=== PATIENT | female | born 1965 | race Caucasian/White ===

== ENCOUNTER 2017-03-20 23:41 | Emergency (ER) | payer OTHER ==
[2017-03-21 00:08] VITALS: BP 157/96
[2017-03-21] MEDS ORDERED: Proparacaine 0.5% Ophth Soln 15 ML Bottle EYELF ONE (00:11)
--- NOTE | 2017-03-21 00:45 | EDM.PDOC ---
[id number] GOT HIT IN THE EYE WITH A METAL POLE Time Seen by Provider: 03/21/17 00:10 Source of Information: Reports: Patient History Limitations: Reports: No Limitations - History of Present Illness INITIAL COMMENTS - FREE TEXT/NARRATIVE: 51-year-old female was struck on the left side of her face by metal pole when it fell over, taking a directed hit over the left eye. She had instant discomfort of the eye. She had profuse tearing and nausea. It happened about one hour ago. No other complaints. Onset: Sudden Duration: Hour(s): (One hour ago) Location: Reports: Other (Left eye and left side of her face) left eye Pain Score (Numeric/FACES): 7 - Related Data Allergies Allergy/AdvReac Type Severity Reaction Status Date / Time bee venom protein (honey bee) Allergy Airway Verified 03/21/17 00:20 Tightness latex Allergy Rash Verified 03/21/17 00:20 Penicillins Allergy Rash Verified 03/21/17 00:20 Home Meds: Home Meds Ergocalciferol (Vitamin D2) [Vitamin D2] 50,000 unit PO WEEKLY 03/21/17 [History ] Past Medical History HEENT History: Reports: Impaired Vision Musculoskeletal History: Reports: None - Infectious Disease History Infectious Disease History: Reports: Chicken Pox - Past Surgical History HEENT Surgical History: Reports: Naso-Sinus Surgery Female Surgical History: Reports: Hysterectomy Musculoskeletal Surgical History: Reports: None Social & Family History - Tobacco Use Smoking Status *Q: Never Smoker - Caffeine Use Caffeine Use: Reports: Coffee, Soda - Recreational Drug Use Recreational Drug Use: No ED ROS GENERAL - Review of Systems Review Of Systems: See Below Constitutional: Denies: Fever Respiratory: Denies: Shortness of Breath Cardiovascular: Denies: Chest Pain GI/Abdominal: Reports: Nausea, Vomiting. Denies: Abdominal Pain Skin: Reports: No Symptoms Neurological: Reports: Headache ED EXAM GENERAL W FULL EYE - Physical Exam Exam: See Below Exam Limited By: No Limitations General Appearance: Alert, Moderate Distress Eye Exam: Left Eye: Conjunctival Injection, Corneal Abrasion, Bilateral Eye: PERRL Eyelids: Left: Erythema Conjunctiva & Sclera: Left: Injected Cornea Exam: Left: Corneal Abrasion (Patient has a linear cornea abrasion across the anterior aspect of the eye seen under fluoroscopic exam) Respiratory/Chest: No Respiratory Distress Course - Vital Signs Last Recorded V/S: Last Vital Signs Temp 97.3 F 03/21/17 00:05 Pulse 85 03/21/17 00:05 Resp 16 03/21/17 00:05 BP 157/96 H 03/21/17 00:05 Pulse Ox 100 03/21/17 00:05 - Orders/Labs/Meds Meds: Medications Discontinued Medications Generic Name Dose Route Start Last Admin Trade Name Freq PRN Reason Stop Dose Admin Proparacaine HCl 1 ml 03/21/17 00:11 03/21/17 00:29 Proparacaine 0.5% Ophth Soln EYELF 03/21/17 00:12 1 ml ONETIME ONE Administration - Re-Assessments/Exams Free Text/Narrative Re-Assessment/Exam: 03/21/17 00:43 Proparacaine eyedrops were placed in the eye and all her symptoms resolved. With fluorescein stain a linear transverse abrasion over the cornea directly over the pupil was seen. The patient was placed on gentamicin eye drops to use 3 times a day, and will recheck with optometry on Monday or return sooner if worsening. This should heal rapidly and she was reassured. Departure - Departure Time of Disposition: 00:53 Disposition: Home, Self-Care 01 Condition: Good Clinical Impression: Corneal abrasion - Discharge Information Instructions: Corneal Abrasion, [id number] Referrals: Jaclyn La MD [Primary Care Provider] - Forms: ED Department Discharge Care Plan Goals: Use antibiotic drops 3 times a day until pain is completely resolved, up to 5 days. Recheck in 2-3 days if not healing satisfactorily.
== END 2017-03-21 00:53 | disposition home or self-care (01) ==
LOC: JP.ED 23:41
DX: S05.02XA Injury of conjunctiva and corneal abrasion without foreign body, left eye, initial encounter (principal); Z98.890 Other specified postprocedural states; Z90.710 Acquired absence of both cervix and uterus; Z91.040 Latex allergy status; Z88.0 Allergy status to penicillin; Z91.030 Bee allergy status; W18.09XA Striking against other object with subsequent fall, initial encounter
CPT/HCPCS: 99283; A9270

== ENCOUNTER 2017-10-10 11:24 | Observation (INO) | payer OTHER ==
[2017-10-10] MEDS ORDERED: Ondansetron 4 MG/2 ML SDV IVPUSH ONE (12:12)
[2017-10-10] MEDS ORDERED: Sodium Chloride 0.9% 1,000 ML IV SCH ×2 (12:15→12:30)
--- NOTE | 2017-10-10 12:18 | EDM.PDOC ---
ED HPI GENERAL MEDICAL PROBLEM - General Chief Complaint: Gastrointestinal Problem Stated Complaint: FEVER/VOMITING Time Seen by Provider: 10/10/17 12:12 Source of Information: Reports: Patient History Limitations: Reports: No Limitations - History of Present Illness INITIAL COMMENTS - FREE TEXT/NARRATIVE: pt has had diarrhea and vomiting for nearly 2 weeks. She did go back to work yesterday and when she got home she felt ill. She spiked a fever during the nite and she had severe vomiting and diarrhea. She states that during the nite she must have had 20 stools. The stools are very foul smelling and has alot of mucous. she had an episode where she nearly passed out. Onset: Other ( Pt has had problems for about 2 weeks on and off. ) Duration: Day(s): Location: Reports: Abdomen, Other (pt has been spiking fevers. ) Associated Symptoms: Reports: Fever/Chills, Malaise, Nausea/Vomiting, Weakness, Other (pt had marked diarrhea. ) Bilateral Flank Pain Score (Numeric/FACES): 5 - Related Data Allergies Allergy/AdvReac Type Severity Reaction Status Date / Time bee venom protein (honey bee) Allergy Airway Verified 10/10/17 11:51 Tightness latex Allergy Rash Verified 10/10/17 11:51 Penicillins Allergy Rash Verified 10/10/17 11:51 Home Meds: Home Meds Ergocalciferol (Vitamin D2) [Vitamin D2] 50,000 unit PO WEEKLY 03/21/17 [History ] Past Medical History HEENT History: Reports: Impaired Vision [employer] DES[employer]ER History: Reports: Other (See Below) Other OB/BYN History: cyst in uterus Musculoskeletal History: Reports: None - Infectious Disease History Infectious Disease History: Reports: Chicken Pox - Past Surgical History HEENT Surgical History: Reports: Naso-Sinus Surgery Female Surgical History: Reports: Hysterectomy, Salpingo-Oophorectomy Musculoskeletal Surgical History: Reports: None Social & Family History - Tobacco Use Smoking Status *Q: Never Smoker - Caffeine Use Caffeine Use: Reports: Coffee, Soda - Recreational Drug Use Recreational Drug Use: No ED ROS GENERAL - Review of Systems Review Of Systems: See Below Constitutional: Reports: Fever, Chills, Malaise HEENT: Reports: No Symptoms Respiratory: Reports: No Symptoms Cardiovascular: Reports: No Symptoms Endocrine: Reports: No Symptoms GI/Abdominal: Reports: Diarrhea, Nausea, Vomiting : Reports: No Symptoms Musculoskeletal: Reports: No Symptoms Skin: Reports: No Symptoms ED EXAM, GI/ABD - Physical Exam Exam: See Below Text/Narrative:: pt arrived with weaknss and the feeling that she could pass out. She had about 20 stools last nite and she did alot of vomiting. She did spike a fever. Exam Limited By: No Limitations General Appearance: Alert, Mild Distress, Other (pupils are equal and reactive. ) Ears: Normal TMs Nose: Normal Inspection Throat/Mouth: Normal Inspection Head: Atraumatic Neck: Normal Inspection Respiratory/Chest: No Respiratory Distress Cardiovascular: Regular Rate, Rhythm GI/Abdominal Exam: Other (pt does have sig tenderness around a umbilical hernia. ) (Female) Exam: Deferred Rectal (Female) Exam: Deferred, Hemorrhoids Back Exam: Normal Inspection Extremities: Normal Inspection Neurological: Alert, Oriented, Normal Cognition Psychiatric: Normal Affect Course - Vital Signs Last Recorded V/S: Last Vital Signs Temp 36.9 C 10/10/17 11:48 Pulse 88 10/10/17 14:57 Resp 18 10/10/17 14:57 BP 125/79 10/10/17 14:57 Pulse Ox 100 10/10/17 14:57 - Orders/Labs/Meds Orders: Active Orders 24 hr Category Date Time Status CULTURE BLOOD [BC] Urgent Lab 10/10/17 12:50 Received CULTURE BLOOD [BC] Urgent Lab 10/10/17 13:00 Received CULTURE STOOL + SHIGATOX [RM] Stat Lab 10/10/17 15:03 Uncollected Sodium Chloride 0.9% [Normal Saline] 1,000 ml Med 10/10/17 12:15 Active IV ASDIRECTED Sodium Chloride 0.9% [Normal Saline] 1,000 ml Med 10/10/17 12:30 Active IV ASDIRECTED Blood Culture x2 Reflex Set [OM.PC] Urgent Oth 10/10/17 12:48 Ordered Medication Orders Sodium Chloride (Normal Saline) 1,000 mls @ 999 mls/hr IV ASDIRECTED THO Last Admin: 10/10/17 12:29 Dose: 999 mls/hr Sodium Chloride (Normal Saline) 1,000 mls @ 999 mls/hr IV ASDIRECTED THO Last Admin: 10/10/17 13:49 Dose: 999 mls/hr Labs: Laboratory Tests 10/10/17 10/10/17 10/10/17 Range/Units 12:09 12:09 12:09 WBC 10.8 (4.5-11.0) K/uL RBC 5.27 (3.30-5.50) M/uL Hgb 15.6 H (12.0-15.0) g/dL Hct 45.9 (36.0-48.0) % MCV 87 (80-98) fL MCH 30 (27-31) pg MCHC 34 (32-36) % Plt Count 363 (150-400) K/uL Neut % (Auto) 94 H (36-66) % Lymph % (Auto) 3 L (24-44) % Branch % (Auto) 3 (2-6) % Eos % (Auto) 0 L (2-4) % Baso % (Auto) 0 (0-1) % Sodium 144 (140-148) mmol/L Potassium 3.7 (3.6-5.2) mmol/L Chloride 105 (100-108) mmol/L Carbon Dioxide 26 (21-32) mmol/L Anion Gap 13.1 (5.0-14.0) mmol/L BUN 22 H (7-18) mg/dL Creatinine 0.9 (0.6-1.0) mg/dL Est Cr Clr Drug Dosing 64.30 mL/min Estimated GFR (MDRD) > 60 (>60) Glucose 112 H (74-106) mg/dL Lactic Acid 2.4 H (0.4-2.0) mmol/L Calcium 9.7 (8.5-10.1) mg/dL Total Bilirubin 2.0 H (0.2-1.0) mg/dL AST 24 (15-37) U/L ALT 31 (12-78) U/L Alkaline Phosphatase 86 (46-116) U/L C-Reactive Protein (0.0-0.3) mg/dL Total Protein 7.6 (6.4-8.2) g/dL Albumin 4.2 (3.4-5.0) g/dL Globulin 3.4 (2.3-3.5) g/dL Albumin/Globulin Ratio 1.2 (1.2-2.2) Urine Color Urine Appearance Urine pH (4.5-8.0) Ur Specific [place] (1.008-1.030) Urine Protein (NEGATIVE) mg/dL Urine Glucose (UA) (NEGATIVE) mg/dL Urine Ketones (NEGATIVE) mg/dL Urine Occult Blood (NEGATIVE) Urine Nitrite (NEGATIVE) Urine Bilirubin (NEGATIVE) Urine Urobilinogen (NORMAL) mg/dL Ur Leukocyte Esterase (NEGATIVE) Urine RBC (0-5) Urine WBC (0-5) Ur Epithelial Cells Amorphous Sediment Urine Bacteria Urine Mucus 10/10/17 10/10/17 Range/Units 12:12 13:53 WBC (4.5-11.0) K/uL RBC (3.30-5.50) M/uL Hgb (12.0-15.0) g/dL Hct (36.0-48.0) % MCV (80-98) fL MCH (27-31) pg MCHC (32-36) % Plt Count (150-400) K/uL Neut % (Auto) (36-66) % Lymph % (Auto) (24-44) % Branch % (Auto) (2-6) % Eos % (Auto) (2-4) % Baso % (Auto) (0-1) % Sodium (140-148) mmol/L Potassium (3.6-5.2) mmol/L Chloride (100-108) mmol/L Carbon Dioxide (21-32) mmol/L Anion Gap (5.0-14.0) mmol/L BUN (7-18) mg/dL Creatinine (0.6-1.0) mg/dL Est Cr Clr Drug Dosing mL/min Estimated GFR (MDRD) (>60) Glucose (74-106) mg/dL Lactic Acid (0.4-2.0) mmol/L Calcium (8.5-10.1) mg/dL Total Bilirubin (0.2-1.0) mg/dL AST (15-37) U/L ALT (12-78) U/L Alkaline Phosphatase (46-116) U/L C-Reactive Protein 0.70 H (0.0-0.3) mg/dL Total Protein (6.4-8.2) g/dL Albumin (3.4-5.0) g/dL Globulin (2.3-3.5) g/dL Albumin/Globulin Ratio (1.2-2.2) Urine Color Yellow Urine Appearance Clear Urine pH 9.0 H (4.5-8.0) Ur Specific [place] 1.015 (1.008-1.030) Urine Protein Negative (NEGATIVE) mg/dL Urine Glucose (UA) Normal (NEGATIVE) mg/dL Urine Ketones Negative (NEGATIVE) mg/dL Urine Occult Blood Negative (NEGATIVE) Urine Nitrite Negative (NEGATIVE) Urine Bilirubin Negative (NEGATIVE) Urine Urobilinogen Normal (NORMAL) mg/dL Ur Leukocyte Esterase Small (NEGATIVE) Urine RBC Not seen (0-5) Urine WBC 0-5 (0-5) Ur Epithelial Cells Not seen Amorphous Sediment Not seen Urine Bacteria Not seen Urine Mucus Not seen Meds: Medications Generic Name Dose Route Start Last Admin Trade Name Freq PRN Reason Stop Dose Admin Sodium Chloride 1,000 mls @ 999 mls/hr 10/10/17 12:15 10/10/17 12:29 Normal Saline IV 999 mls/hr ASDIRECTED THO Administration Sodium Chloride 1,000 mls @ 999 mls/hr 10/10/17 12:30 10/10/17 13:49 Normal Saline IV 999 mls/hr ASDIRECTED THO Administration Discontinued Medications Generic Name Dose Route Start Last Admin Trade Name Freq PRN Reason Stop Dose Admin Sodium Chloride 75 mls @ 3 mls/sec 10/10/17 13:13 Normal Saline IV 10/10/17 13:14 ONETIME ONE Iopamidol 100 ml 10/10/17 13:15 Isovue-300 (61%) IV 10/10/17 14:00 . DIRECTED [facility] Ondansetron HCl 4 mg 10/10/17 12:12 10/10/17 12:31 Zofran IVPUSH 10/10/17 12:13 4 mg ONETIME ONE Administration Sodium Chloride 10 ml 10/10/17 13:13 Saline Flush FLUSH 10/10/17 13:14 ONETIME ONE - Re-Assessments/Exams Free Text/Narrative Re-Assessment/Exam: 10/10/17 15:04 pt had a stool for clost which was neg. She had a cat scan of the abdoman because of marked tenderness around the umbilcus. There was fat up in the umbilcus but no bowel. There was diffuse thickening of the bowel wall of the small bowel Departure - Departure Time of Disposition: 15:06 Disposition: Home, Self-Care 01 Condition: Fair Clinical Impression: Enteritis - Discharge Information Referrals: Jaclyn La MD [Primary Care Provider] - Forms: ED Department Discharge Care Plan Goals: admit to Dr Flores - My Orders Last 24 Hours: My Active Orders 10/10/17 12:15 Sodium Chloride 0.9% [Normal Saline] 1,000 ml IV ASDIRECTED 10/10/17 12:30 Sodium Chloride 0.9% [Normal Saline] 1,000 ml IV ASDIRECTED 10/10/17 12:48 Blood Culture x2 Reflex Set [OM.PC] Urgent 10/10/17 12:50 CULTURE BLOOD [BC] Urgent 10/10/17 13:00 CULTURE BLOOD [BC] Urgent 10/10/17 15:03 CULTURE STOOL + SHIGATOX [RM] Stat - Assessment/Plan Last 24 Hours: My Active Orders 10/10/17 12:15 Sodium Chloride 0.9% [Normal Saline] 1,000 ml IV ASDIRECTED 10/10/17 12:30 Sodium Chloride 0.9% [Normal Saline] 1,000 ml IV ASDIRECTED 10/10/17 12:48 Blood Culture x2 Reflex Set [OM.PC] Urgent 10/10/17 12:50 CULTURE BLOOD [BC] Urgent 10/10/17 13:00 CULTURE BLOOD [BC] Urgent 10/10/17 15:03 CULTURE STOOL + SHIGATOX [RM] Stat
[2017-10-10] MEDS ORDERED: Sodium Chloride 0.9% 10 ML Syringe FLUSH ONE (13:13)
[2017-10-10] MEDS ORDERED: Sodium Chloride 0.9% 75 ML IV ONE (13:13)
[2017-10-10] MEDS ORDERED: Iopamidol 612 MG/ML 100 ML Bottle IV SCH (13:15)
--- NOTE | 2017-10-10 13:45 | CT ---
Abdomen Pelvis w Cont Total DLP 620 mGycm. INDICATION: umbilical pain around a hernia COMPARISON: None. FINDINGS: Tiny presumed hepatic cysts. Fat-containing periumbilical hernia with a hernia neck measur ing 12 mm. Borderline diffuse wall thickening of multiple left-sided small bowel loops. Moderate amou nt of fluid throughout the small bowel. These findings can be seen in enteritis. Exam otherwise unrem arkable. IMPRESSION: 1. Fat-containing periumbilical hernia. 2. Probable enteritis.
[2017-10-10] MEDS ORDERED: Acetaminophen 325 MG Tab PO ONE (15:23)
--- NOTE | 2017-10-10 15:57 | PCM.HP ---
H&P History of Present Illness - General Date of Service: 10/10/17 Admit Problem/Dx: Admission Diagnosis/Problem Admission Diagnosis/Problem Enteritis Source of Information: Patient, Family, Provider, RN Notes Reviewed History Limitations: Reports: No Limitations - History of Present Illness Initial Comments - Free Text/Narative: Ms. Meadows is a 52-year-old woman who presented to the emergency department with severe nausea, vomiting, diarrhea, and weakness. She first became ill about 2 weeks ago when she had 24 hours of similar symptoms although not as severe. She done relatively well since then but this morning awoke with severe nausea vomiting and diarrhea. She felt very weak and lightheaded, presented to the emergency department for further evaluation. White blood cell count is within normal range and she has not had significant temperature elevation. CT scan of the abdomen shows evidence of small bowel enteritis. 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 (See Below) Other OB/BYN History: cyst in uterus Musculoskeletal History: Reports: None - Infectious Disease History Infectious Disease History: Reports: Chicken Pox - Past Surgical History HEENT Surgical History: Reports: Naso-Sinus Surgery Female Surgical History: Reports: Hysterectomy, Salpingo-Oophorectomy Musculoskeletal Surgical History: Reports: None Social & Family History - Tobacco Use Smoking Status *Q: Never Smoker - Caffeine Use Caffeine Use: Reports: Coffee, Soda - Recreational Drug Use Recreational Drug Use: No H&P Review of Systems - Review of Systems: Review Of Systems: See Below General: Reports: Chills, Weakness, Diaphoresis, Decreased Appetite. Denies: Fever HEENT: Reports: No Symptoms Pulmonary: Reports: No Symptoms Cardiovascular: Reports: No Symptoms Gastrointestinal: Reports: Abdominal Pain, Anorexia, Diarrhea, Nausea, Vomiting. Denies: Black Stool, Bloody Stool, Hematemesis Genitourinary: Reports: No Symptoms Musculoskeletal: Reports: Muscle Pain, Muscle Stiffness Skin: Reports: No Symptoms Psychiatric: Reports: No Symptoms Neurological: Reports: No Symptoms Hematologic/Lymphatic: Reports: No Symptoms Immunologic: Reports: No Symptoms Exam - Exam Exam: See Below - Vital Signs Vital Signs: Last Vital Signs Temp 99.5 F 10/10/17 15:39 Pulse 88 10/10/17 14:57 Resp 18 10/10/17 14:57 BP 125/79 10/10/17 14:57 Pulse Ox 100 10/10/17 14:57 Weight: 172 lb 6.424 oz - Exam Quality Assessment: DVT Prophylaxis General: Alert, Oriented, Cooperative, Mild Distress HEENT: Conjunctiva Clear, Hearing Intact, Normal Nasal Septum, Posterior Pharynx Clear, Pupils Equal. No: Mucosa Moist & [place] Neck: Supple, Trachea Midline, +2 Carotid Pulse wo Bruit Lungs: Clear to Auscultation, Normal Respiratory Effort Cardiovascular: Regular Rate, Regular Rhythm, Normal S1, Normal S2. No: Systolic Murmur, Diastolic Murmur GI/Abdominal Exam: Soft, Non-Tender, No Organomegaly, No Distention Back Exam: Normal Inspection, Full Range of Motion Extremities: Non-Tender, No Pedal Edema Skin: Warm, Dry, Intact Neurological: Cranial Nerves Intact, Strength Equal Bilateral, Normal Speech, Normal Tone, Sensation Intact. No: Focal Deficit Neuro Extensive - Mental Status: Alert, Oriented x3, Normal Mood/Affect, Normal Cognition, Memory Intact - Patient Data Lab Results Last 24 hrs: Laboratory Results - last 24 hr 10/10/17 10/10/17 10/10/17 Range/Units 12:09 12:09 12:09 WBC 10.8 (4.5-11.0) K/uL RBC 5.27 (3.30-5.50) M/uL Hgb 15.6 H (12.0-15.0) g/dL Hct 45.9 (36.0-48.0) % MCV 87 (80-98) fL MCH 30 (27-31) pg MCHC 34 (32-36) % Plt Count 363 (150-400) K/uL Neut % (Auto) 94 H (36-66) % Lymph % (Auto) 3 L (24-44) % [place] % (Auto) 3 (2-6) % Eos % (Auto) 0 L (2-4) % Baso % (Auto) 0 (0-1) % Sodium 144 (140-148) mmol/L Potassium 3.7 (3.6-5.2) mmol/L Chloride 105 (100-108) mmol/L Carbon Dioxide 26 (21-32) mmol/L Anion Gap 13.1 (5.0-14.0) mmol/L BUN 22 H (7-18) mg/dL Creatinine 0.9 (0.6-1.0) mg/dL Est Cr Clr Drug Dosing 64.30 mL/min Estimated GFR (MDRD) > 60 (>60) Glucose 112 H (74-106) mg/dL Lactic Acid 2.4 H (0.4-2.0) mmol/L Calcium 9.7 (8.5-10.1) mg/dL Total Bilirubin 2.0 H (0.2-1.0) mg/dL AST 24 (15-37) U/L ALT 31 (12-78) U/L Alkaline Phosphatase 86 (46-116) U/L C-Reactive Protein (0.0-0.3) mg/dL Total Protein 7.6 (6.4-8.2) g/dL Albumin 4.2 (3.4-5.0) g/dL Globulin 3.4 (2.3-3.5) g/dL Albumin/Globulin Ratio 1.2 (1.2-2.2) Urine Color Urine Appearance Urine pH (4.5-8.0) Ur Specific [place] (1.008-1.030) Urine Protein (NEGATIVE) mg/dL Urine Glucose (UA) (NEGATIVE) mg/dL Urine Ketones (NEGATIVE) mg/dL Urine Occult Blood (NEGATIVE) Urine Nitrite (NEGATIVE) Urine Bilirubin (NEGATIVE) Urine Urobilinogen (NORMAL) mg/dL Ur Leukocyte Esterase (NEGATIVE) Urine RBC (0-5) Urine WBC (0-5) Ur Epithelial Cells Amorphous Sediment Urine Bacteria Urine Mucus 10/10/17 10/10/17 Range/Units 12:12 13:53 WBC (4.5-11.0) K/uL RBC (3.30-5.50) M/uL Hgb (12.0-15.0) g/dL Hct (36.0-48.0) % MCV (80-98) fL MCH (27-31) pg MCHC (32-36) % Plt Count (150-400) K/uL Neut % (Auto) (36-66) % Lymph % (Auto) (24-44) % [place] % (Auto) (2-6) % Eos % (Auto) (2-4) % Baso % (Auto) (0-1) % Sodium (140-148) mmol/L Potassium (3.6-5.2) mmol/L Chloride (100-108) mmol/L Carbon Dioxide (21-32) mmol/L Anion Gap (5.0-14.0) mmol/L BUN (7-18) mg/dL Creatinine (0.6-1.0) mg/dL Est Cr Clr Drug Dosing mL/min Estimated GFR (MDRD) (>60) Glucose (74-106) mg/dL Lactic Acid (0.4-2.0) mmol/L Calcium (8.5-10.1) mg/dL Total Bilirubin (0.2-1.0) mg/dL AST (15-37) U/L ALT (12-78) U/L Alkaline Phosphatase (46-116) U/L C-Reactive Protein 0.70 H (0.0-0.3) mg/dL Total Protein (6.4-8.2) g/dL Albumin (3.4-5.0) g/dL Globulin (2.3-3.5) g/dL Albumin/Globulin Ratio (1.2-2.2) Urine Color Yellow Urine Appearance Clear Urine pH 9.0 H (4.5-8.0) Ur Specific [place] 1.015 (1.008-1.030) Urine Protein Negative (NEGATIVE) mg/dL Urine Glucose (UA) Normal (NEGATIVE) mg/dL Urine Ketones Negative (NEGATIVE) mg/dL Urine Occult Blood Negative (NEGATIVE) Urine Nitrite Negative (NEGATIVE) Urine Bilirubin Negative (NEGATIVE) Urine Urobilinogen Normal (NORMAL) mg/dL Ur Leukocyte Esterase Small (NEGATIVE) Urine RBC Not seen (0-5) Urine WBC 0-5 (0-5) Ur Epithelial Cells Not seen Amorphous Sediment Not seen Urine Bacteria Not seen Urine Mucus Not seen Result Diagrams: 10/10/17 12:09 10/10/17 12:09 Elvin Results Last 24 hrs: Microbiology 10/10/17 13:53 Clostridium difficile (PCR) - Final Stool / Feces NEGATIVE CDIFF TOXIN 10/10/17 12:16 Influenza Type A Antigen Screen - Final Nasopharyngeal Swab - Nare, Unspecified NEGATIVE INFLUENZA A VIRUS AG Influenza Type B Antigen Screen - Final NEGATIVE INFLUENZA B VIRUS AG *Q Meaningful Use (ADM) - VTE *Q VTE Criteria *Q: - VTE Risk Assess *Q Each Risk Factor Represents 1 Point: Age 41 - 59 years, Obesity ( BMI > 25 kg/m2 ) Total Score 1 Point Risk Factors: 2 Each Risk Factor Represents 2 Points: None Total Score 2 Point Risk Factors: 0 Each Risk Factor Represents 3 Points: None Total Score 3 Point Risk Factors: 0 Each Risk Factor Represents 5 Points: None Total Score 5 Point Risk Factors: 0 Venous Thromboembolism Risk Factor Score *Q: 2 - Stroke *Q Stroke Criteria *Q: - AMI *Q AMI Criteria *Q: Problem List Initiated/Reviewed/Updated: Yes Orders Last 24hrs: Active Orders 24 hr Category Date Time Status Patient Status Manage Transfer [TRANSFER] Routine ADT 10/10/17 15:45 Ordered CULTURE BLOOD [BC] Urgent Lab 10/10/17 12:50 Received CULTURE BLOOD [BC] Urgent Lab 10/10/17 13:00 Received CULTURE STOOL + SHIGATOX [RM] Stat Lab 10/10/17 15:44 Received Sodium Chloride 0.9% [Normal Saline] 1,000 ml Med 10/10/17 12:15 Active IV ASDIRECTED Sodium Chloride 0.9% [Normal Saline] 1,000 ml Med 10/10/17 12:30 Active IV ASDIRECTED Blood Culture x2 Reflex Set [OM.PC] Urgent Oth 10/10/17 12:48 Ordered Resuscitation Status Routine Resus Stat 10/10/17 15:46 Ordered Medication Orders Sodium Chloride (Normal Saline) 1,000 mls @ 999 mls/hr IV ASDIRECTED [facility] Last Admin: 10/10/17 12:29 Dose: 999 mls/hr Sodium Chloride (Normal Saline) 1,000 mls @ 999 mls/hr IV ASDIRECTED [facility] Last Admin: 10/10/17 13:49 Dose: 999 mls/hr Assessment/Plan Comment:: ASSESSMENT AND PLAN ENTERITIS-with nausea, vomiting, diarrhea, weakness, and dehydration. Likely viral in nature but at this point cannot rule out bacterial infection. -IV fluids for hydration -Anti-medic therapy as needed -Pain medication as needed -Stool culture -IV Flagyl and ciprofloxacin, pending culture results MAINTENANCE ISSUES -DVT prophylaxis; ambulation -GI prophylaxis; not indicated -[place] catheter; not indicated -Nutrition; regular diet -Nicotine dependence; not required CODE STATUS-FULL CODE ADMISSION STATUS-this patient will be admitted to observation status, expect no more than a one night hospital stay for evaluation and management of problems as outlined above. DISPOSITION-anticipate discharge to home after the hospital stay. PRIMARY CARE PROVIDER-Dr. La
[2017-10-10] MEDS ORDERED: oxyCODONE 5 MG Tab PO PRN (16:24)
[2017-10-10] MEDS ORDERED: Ondansetron 4 MG/2 ML SDV IV PRN (16:24)
[2017-10-10] MEDS ORDERED: Lactated Ringers 500 ML IV SCH (16:24)
[2017-10-10] MEDS ORDERED: Acetaminophen 325 MG Tab PO PRN (16:24)
[2017-10-10] MEDS: Ciprofloxacin in D5W 400 MG in Premix Bag 1 BAG IV SCH ×2 (16:55)
[2017-10-10] MEDS: metroNIDAZOLE/Normal Saline 500 MG in Premix Bag 1 BAG IV SCH (18:16)
[2017-10-10] MEDS: Lactated Ringers 1,000 ML IV SCH ×2 (19:36→23:36)
[2017-10-11] MEDS: metroNIDAZOLE/Normal Saline 500 MG in Premix Bag 1 BAG IV SCH ×2 (01:11→10:28)
[2017-10-11] MEDS: Ciprofloxacin in D5W 400 MG in Premix Bag 1 BAG IV SCH ×4 (05:00→06:16)
[2017-10-11 07:38] VITALS: BP 126/89
[2017-10-11] MEDS: Lactated Ringers 1,000 ML IV SCH (08:44)
--- NOTE | 2017-10-11 10:46 | PCM.DCSUM1 ---
Discharge Summary - Hospital Course Brief History: Ms. Meadows is a 52-year-old woman who was admitted to observation status through the emergency department with nausea, vomiting, diarrhea, weakness, and dehydration secondary to enteritis. - Discharge Data Discharge Date: 10/11/17 Discharge Disposition: Home, Self-Care 01 Condition: Fair - Discharge Diagnosis/Problem(s) (1) Enteritis SNOMED Code(s): 28846146 ICD Code: K52.9 - NONINFECTIVE GASTROENTERITIS AND COLITIS, UNSPECIFIED Status: Acute Current Visit: Yes - Patient Summary/Data Hospital Course: Ms. Meadows is a 52-year-old woman who was seen in the emergency department with a history of abrupt onset of nausea, vomiting, diarrhea and weakness. Vomiting and diarrhea led to development of dehydration and worsening of the weakness. She was given IV fluids in the emergency department, white blood cell count was normal. Stool was checked for C. difficile and found to be negative. CT scan of the abdomen was obtained and showed inflammation in the small bowel left abdomen consistent with enteritis. This was felt to be likely cause of her symptoms and she was admitted to observation status for management of nausea and dehydration. She was given IV fluids after admission and anti-medic therapy as needed. She had mild ongoing nausea but no further vomiting and marked improvement in diarrhea. Stool studies were obtained including stool culture which is pending at the time of discharge. She initially was given IV antibiotics during hospital stay but these will be discontinued on discharge as this is very likely a viral infection. She has had a recent history of nausea and epigastric right upper quadrant abdominal discomfort associated with eating fatty foods. CCK stimulated HIDA scan will be ordered for October 16. Activity will be as tolerated and she will remain on a light diet until nausea and diarrhea have totally resolved. All of appointment will be scheduled with her primary care provider Dr. La for October 18. - Patient Instructions Diet: GI Soft/Low Residue/Low Fiber Activity: As Tolerated Other/Special Instructions: Please schedule CCK stimulated HIDA scan for MondayOctober 16. Please schedule follow-up appointment with Dr. La for October 18. - Discharge Plan Prescriptions/Med Rec: Ondansetron [Zofran ODT] 4 mg PO Q4H PRN #12 tab.dis PRN Reason: Nausea Home Medications: Home Meds Ergocalciferol (Vitamin D2) [Vitamin D2] 50,000 unit PO WEEKLY 03/21/17 [History ] Ondansetron [Zofran ODT] 4 mg PO Q4H PRN #12 tab.dis 10/11/17 [Rx] Referrals: Jaclyn La MD [Primary Care Provider] - - Patient Data Vitals - Most Recent: Last Vital Signs Temp 96.6 F 10/11/17 07:37 Pulse 77 10/11/17 07:37 Resp 16 10/11/17 07:37 BP 126/89 10/11/17 07:37 Pulse Ox 99 10/11/17 07:37 Weight - Most Recent: 172 lb I&O - Last 24 hours: Intake & Output 10/10/17 10/11/17 10/11/17 22:59 06:59 14:59 Intake Total 300 1689 740 Output Total 1 Balance 300 1688 740 Lab Results - Last 24 hrs: Laboratory Results - last 24 hr 10/10/17 10/11/17 10/11/17 Range/Units 16:40 05:30 05:30 WBC 4.9 (4.5-11.0) K/uL RBC 4.27 (3.30-5.50) M/uL Hgb 12.9 D (12.0-15.0) g/dL Hct 38.4 (36.0-48.0) % MCV 90 (80-98) fL MCH 30 (27-31) pg MCHC 34 (32-36) % Plt Count 276 (150-400) K/uL Neut % (Auto) 71 H (36-66) % Lymph % (Auto) 17 L (24-44) % [place] % (Auto) 11 H (2-6) % Eos % (Auto) 1 L (2-4) % Baso % (Auto) 0 (0-1) % Sodium 145 (140-148) mmol/L Potassium 4.0 (3.6-5.2) mmol/L Chloride 111 H (100-108) mmol/L Carbon Dioxide 26 (21-32) mmol/L Anion Gap 12.0 (5.0-14.0) mmol/L BUN 10 D (7-18) mg/dL Creatinine 0.8 (0.6-1.0) mg/dL Est Cr Clr Drug Dosing 72.34 mL/min Estimated GFR (MDRD) > 60 (>60) Glucose 111 H (74-106) mg/dL Lactic Acid 1.6 (0.4-2.0) mmol/L Calcium 8.7 (8.5-10.1) mg/dL [id number] Results - Last 24 hrs: Microbiology 10/10/17 19:42 Stool for WBCs - Final Stool / Feces NO WBC SEEN Med Orders - Current: Current Medications Acetaminophen (Tylenol) 650 mg PO Q4H PRN PRN Reason: Pain (Mild 1-3)/fever Last Admin: 10/10/17 21:08 Dose: 650 mg Ciprofloxacin/Dextrose 400 mg/ (Premix) 200 mls @ 200 mls/hr IV Q12H [facility] Last Admin: 10/11/17 05:00 Dose: 200 mls/hr Lactated Ringer's (Ringers, Lactated) 1,000 mls @ 125 mls[facility] Last Admin: 10/11/17 08:44 Dose: 125 mls/hr Metronidazole 500 mg/ Premix 100 mls @ 100 mls/hr IV Q8H [facility] Last Admin: 10/11/17 10:28 Dose: 100 mls/hr Ondansetron HCl (Zofran) 4 mg IV Q4H PRN PRN Reason: Nausea/Vomiting Last Admin: 10/11/17 03:03 Dose: 4 mg Oxycodone HCl (Oxycodone) 5 mg PO Q4H PRN PRN Reason: Pain (moderate 4-6) Discontinued Medications Acetaminophen (Tylenol) 650 mg PO NOW ONE Stop: 10/10/17 15:24 Last Admin: 10/10/17 15:31 Dose: 650 mg Sodium Chloride (Normal Saline) 1,000 mls @ 999 mls/hr [facility] Last Admin: 10/10/17 12:29 Dose: 999 mls/hr Sodium Chloride (Normal Saline) 1,000 mls @ 999 mls[facility] Last Admin: 10/10/17 13:49 Dose: 999 mls/hr Sodium Chloride (Normal Saline) 75 mls @ 3 mls/sec IV ONETIME ONE Stop: 10/10/17 13:14 Last Admin: 10/10/17 17:50 Dose: Not Given Lactated Ringer's (Ringers, Lactated) 500 mls @ 250 mls/hr IV .BOLUS THO Stop: 10/10/17 20:25 Last Admin: 10/10/17 16:55 Dose: 250 mls/hr Iopamidol (Isovue-300 (61%)) 100 ml IV . DIRECTED THO Stop: 10/10/17 14:00 Ondansetron HCl (Zofran) 4 mg IVPUSH ONETIME ONE Stop: 10/10/17 12:13 Last Admin: 10/10/17 12:31 Dose: 4 mg Sodium Chloride (Saline Flush) 10 ml FLUSH ONETIME ONE Stop: 10/10/17 13:14 Last Admin: 10/10/17 17:50 Dose: Not Given *Q Meaningful Use (DIS) - VTE *Q VTE Criteria *Q: - Stroke *Q Stroke Criteria *Q: - AMI *Q AMI Criteria *Q:
== END 2017-10-11 11:15 | disposition home or self-care (01) ==
LOC: JP.ED 11:24 → JP.MS 15:45
PROVIDERS: ADMIT Hospitalist; ATTEND Hospitalist
DX: K52.9 Noninfective gastroenteritis and colitis, unspecified (principal); Z79.899 Other long term (current) drug therapy; Z88.0 Allergy status to penicillin; Z91.040 Latex allergy status; Z91.030 Bee allergy status
CPT/HCPCS: 36415; 74177; 80048; 80053; 81001; 83605; 85025; 86140; 87040; 87046; 87493; 87804; 87899; 89055; 96361; 96374; 99285; A9270; J0744; J2405; J7040; J7120; 96365; 96366; 96367; 96375; 96376; G0378; J7030

== ENCOUNTER 2020-10-23 07:21 | Day surgery (SDC) | payer OTHER ==
[~2020-10-23 07:21] MED LIST: Midazolam 1 MG/ML 2 ML SDV ONE; Propofol 200 MG/20 ML SDV ONE; fentaNYL 100 MCG/2 ML SDV ONE
[2020-10-23] MEDS ORDERED: Sodium Chloride 0.9% 1,000 ML IV SCH (08:00)
[2020-10-23 09:46] VITALS: BP 106/76; PULSE 77
--- NOTE | 2020-10-23 10:46 | OR ---
DATE OF PROCEDURE: 10/23/2020 SURGEON: Pedro Dewitt MD PROCEDURE: Colonoscopy. FINDINGS: Diverticulosis, very mild. COMPLICATIONS: None. [employer]ING ENGINEER: None. ANESTHESIA: MAC. PREOPERATIVE DIAGNOSIS: Screening colonoscopy. POSTOPERATIVE DIAGNOSIS: Screening colonoscopy. RISKS: Risks, benefits, alternatives, and limitations including, but not limited to infection, bleeding, and perforation were explained along with false positives and false negatives, and they wished to proceed. PROCEDURE IN DETAIL: The patient was placed in left lateral decubitus position. Digital rectal exam was performed without abnormality. Scope was introduced and advanced atraumatically to the ileocecal valve. A photo was taken of this. Scope was brought back to the ascending, transverse, descending colon, and retroflexed. No evidence of old or new blood. No masses. No polyps. The patient did have diverticulosis that was described as very mild, limited to sigmoid colon with approximately less than 5 diverticula. No abnormalities on retroflexion. No colitis. Prep was acceptable with 95% of the luminal surface could be seen. Greater than 8 minutes was spent removing the scope. The patient tolerated the procedure well. Pedro Dewitt MD /[id number]
== END 2020-10-23 09:53 | disposition home or self-care (01) ==
LOC: JP.SDS 07:21
PROVIDERS: ATTEND Surgery
DX: Z12.11 Encounter for screening for malignant neoplasm of colon (principal); K57.30 Diverticulosis of large intestine without perforation or abscess without bleeding; E78.5 Hyperlipidemia, unspecified
CPT/HCPCS: 45378; J2250; J2704; J3010; J7030